=== PATIENT | male | born 1940 | race Two or more races ===

== ENCOUNTER 2019-03-20 10:59 | Emergency (ER) | payer MEDICARE ==
[~2019-03-20] VITALS: Ht 167.6 cm; Wt 100.2 kg
[2019-03-20 13:06] VITALS: BP 125/92
== END 2019-03-20 13:20 | disposition home or self-care (01) ==
LOC: ER 10:59
DX: E11.9 Type 2 diabetes mellitus without complications (principal); I10 Essential (primary) hypertension; Z76.0 Encounter for issue of repeat prescription; Z88.6 Allergy status to analgesic agent; Z86.73 Personal history of transient ischemic attack (TIA), and cerebral infarction without residual deficits